=== PATIENT | male | born 1960 | race Caucasian/White ===

== ENCOUNTER 2020-08-13 13:04 | Emergency (ER) | payer OTHER ==
[~2020-08-13 13:04] MED LIST: ALLOPURINOL300 MG PO; COLCHICINE0.6 M1 PO; LIPITOR 10MG TA10 MG PO; PROTONIX 40MG T40 MG PO; TOPROL XL 25MG25 MG PO; ZESTRIL40 MG PO
[2020-08-13 14:04] LABS: BASOPHIL 0.5 % (0-2); EOSINOPHIL 1.2 % (0-5); HCT 41.7 % (42.0-52.0); HGB 13.5 g/dl (13.2-18.0); LYMPHOCYTE 20.6 % (15-48); MCH 29.8 pg (25.0-31.0); MCHC 32.4 g/dL (32.0-36.0); MCV 92.1 fL (78.0-100.0); MONOCYTE 8.4 % (0-12); NEUTROPHIL 69.1 % (41-80); NRBC 0; PLT 193 K/uL (150-400); RBC 4.53 M/uL (4.70-6.00); RDW 13.2 % (11.5-14.0); WBC 8.1 K/uL (4.0-10.5)
[2020-08-13 14:18] LABS: BILIRUBIN NEGATIVE (NEGATIVE); BLOOD NEGATIVE Ery/uL (NEGATIVE); CLARITY CLEAR (CLEAR); COLOR YELLOW (YELLOW); GLUCOSE (U) NORMAL (NORMAL); LEUKOCYTES NEGATIVE Leu/uL (NEGATIVE); NITRITE NEGATIVE (NEGATIVE); PROTEIN NEGATIVE (NEGATIVE); SPECIFIC GRAVITY <=1.005 (1.001-1.030); UROBILINOGEN 0.2 mg/dL (0.2-1.0)
[2020-08-13 14:35] LABS: INR 1.03 (0.9-1.2); PROTHROMBIN TIME 12.8 SECONDS (11.4-13.6); PTT 26.4 SECONDS (22.2-34.7)
[2020-08-13 14:36] LABS: ALBUMIN 3.5 g/dL (3.4-5.0); BILIRUBIN - TOTAL 0.4 mg/dL (0.2-1.0); BUN/CREAT RATIO (CALC) 19.8 RATIO; CREATININE 1.11 mg/dL (0.67-1.17); GLOBULIN (CALCULATION) 3.5 g/dL; POTASSIUM 4.2 mmol/L (3.5-5.1)
[2020-11-28] MEDS ORDERED: COLESTIPOL HCL1 GM PO (10:18)
== END 2020-08-13 15:48 | disposition home or self-care (01) ==
LOC: FER 13:04
PROVIDERS: Emergency Medicine
DX: R07.89 Other chest pain (principal); I10 Essential (primary) hypertension
CPT/HCPCS: 36415; 71045; 80053; 81003; 82553; 83605; 84484; 85025; 85610; 85730; 93005

== ENCOUNTER → 2020-12-02 | Day surgery (SDC) | payer OTHER ==
[~2020-12-02] VITALS: Ht 175.3 cm; Wt 102.0 kg
[~2020-12-02] MED LIST changes: +COLESTIPOL HCL1 GM PO
[2020-12-02 10:56] LABS: HCT 43.7 % (42.0-52.0); HGB 14.9 g/dl (13.2-18.0); MCH 30.8 pg (25.0-31.0); MCHC 34.1 g/dL (32.0-36.0); MCV 90.3 fL (78.0-100.0); MPV 10.9 fL (6.0-9.5); RBC 4.84 M/uL (4.70-6.00); RDW 13.3 % (11.5-14.0); WBC 8.4 K/uL (4.0-10.5)
[2020-12-02 11:18] LABS: ALBUMIN 4.2 g/dL (3.4-5.0); BILIRUBIN - TOTAL 0.7 mg/dL (0.2-1.0); BUN/CREAT RATIO (CALC) 18.9 RATIO; CREATININE 1.22 mg/dL (0.67-1.17); POTASSIUM 4.6 mmol/L (3.5-5.1); TOTAL PROTEIN 8.2 g/dL (6.4-8.2)
== END | disposition home or self-care (01) ==
LOC: FAS 08:28
PROVIDERS: Surgery
DX: K22.2 Esophageal obstruction (principal); K31.89 Other diseases of stomach and duodenum; K21.01 Gastro-esophageal reflux disease with esophagitis, with bleeding; K57.31 Diverticulosis of large intestine without perforation or abscess with bleeding; K64.0 First degree hemorrhoids; K52.9 Noninfective gastroenteritis and colitis, unspecified; M10.9 Gout, unspecified; I10 Essential (primary) hypertension; E78.00 Pure hypercholesterolemia, unspecified; E78.5 Hyperlipidemia, unspecified; M19.90 Unspecified osteoarthritis, unspecified site; Z79.82 Long term (current) use of aspirin; Z79.899 Other long term (current) drug therapy; Z88.8 Allergy status to other drugs, medicaments and biological substances
CPT/HCPCS: 36415; 76705; 80053; C1726; J2250; J2704; J7120

== ENCOUNTER 2021-12-03 11:27 | Emergency (ER) | payer OTHER ==
[2021-12-03 12:27] LABS: BASOPHIL 0.5 % (0-2); EOSINOPHIL 2.1 % (0-5); HCT 43.7 % (42.0-52.0); HGB 14.7 g/dl (13.2-18.0); MCH 30.4 pg (25.0-31.0); MCHC 33.6 g/dL (32.0-36.0); MCV 90.5 fL (78.0-100.0); MONOCYTE 11.9 % (0-12); MPV 11.2 fL (6.0-9.5); NEUTROPHIL 48.3 % (41-80); NRBC 0; PLT 148 K/uL (150-400); RBC 4.83 M/uL (4.70-6.00); RDW 12.7 % (11.5-14.0); WBC 4.3 K/uL (4.0-10.5)
[2021-12-03 13:04] LABS: BUN/CREAT RATIO (CALC) 21.3 RATIO; CREATININE 0.94 mg/dL (0.67-1.17); POTASSIUM 3.9 mmol/L (3.5-5.1)
== END 2021-12-03 13:50 | disposition home or self-care (01) ==
LOC: FER 11:27
PROVIDERS: Emergency Medicine
DX: R00.2 Palpitations (principal); U07.1 COVID-19; I10 Essential (primary) hypertension
CPT/HCPCS: 36415; 71045; 80048; 84484; 85025; 93005